=== PATIENT | female | born 1980 | race Hispanic/Latino ===

== ENCOUNTER 2025-07-29 03:55 | Emergency (ER) | payer OTHER ==
[~2025-07-29] VITALS: Ht 160 cm; Wt 154.2 kg
[2025-07-29] MEDS ORDERED: CLIN-141 PO (04:07)
[2025-07-29] MEDS ORDERED: LORA10TA7 PO (04:07)
[2025-07-29] MEDS ORDERED: FLUT16H NS (04:07)
--- NOTE | 2025-07-29 04:08 | ERN ---
General Chief Complaint: Congestion Stated Complaint: COUGH, CONGESTION Time Seen by MD: 03:59 Source: patient History of Present Illness Initial Comments PATIENT IS A 45-YEAR-OLD COMPLAINING OF A COUGH. PER PATIENT THIS HAS BEEN ONGOING FOR TWO DAYS. SHE STATES THAT SICK CONTACTS INCLUDE SON WITH THE SAME IN HIS SYMPTOMS. NO FEVER OR CHILLS. ROS Dictation CONSTITUTIONAL: NO CHILLS, NO FEVER, NO WEAKNESS, NO DIAPHORESIS, NO MALAISE. HEAD/FACE: NO SIGNS OF TRAUMA. EENT: NO EYE PAIN, NO BLURRED VISION, NO TEARING, NO DOUBLE VISION, NO EAR PAIN, NO EAR DISCHARGE, NO NOSE PAIN, NO NASAL CONGESTION, NO THROAT PAIN, NO THROAT SWELLING, NO MOUTH PAIN. RESPIRATORY: COUGH, NO ORTHOPNEA, NO SOB, NO STRIDOR, NO WHEEZING. CARDIOVASCULAR: NO CHEST PAIN, NO EDEMA, NO PALPITATIONS, NO SYNCOPE. GASTROINTESTINAL/ABDOMINAL: NO ABDOMINAL PAIN, NO CONSTIPATION, NO DIARRHEA, NO NAUSEA, NO VOMITING. GENITOURINARY: NO ABNORMAL DISCHARGE, NO DYSURIA, NO FREQUENT URINATION, NO HEMATURIA. NO COMPLAINTS OF PAIN IN THE GENITALS. MUSCULOSKELETAL: NO BACK PAIN, NO GOUT, NO JOINT PAIN, NO JOINT SWELLING, NO MUSCLE PAIN, NO MUSCLE STIFFNESS, NO NECK PAIN. INTEGUMENTARY: NO CHANGE IN COLOR, NO CHANGE IN HAIR/NAILS, NO DRYNESS, NO LESION, NO LUMPS, NO RASH. NEUROLOGICAL/PSYCH: NO ANXIETY, NOT DEPRESSED, NO EMOTIONAL PROBLEM, NO HEADACHE, NO NUMBNESS, NO PRE-EXISTING DEFICIT, NO HISTORY OF SEIZURES, NO TREMORS, NO WEAKNESS. HEMATOLOGIC/LYMPHATIC: NOT ANEMIC, NO HISTORY OF BLOOD CLOTS, NO APPARENT BLEEDING, NO BRUISING, GLANDS NOT SWOLLEN. ALL SYSTEMS NEGATIVE, EXCEPT NOTED. Physical Exam Physical Exam Dictation VITAL SIGNS: REVIEWED. GENERAL APPEARANCE: ALERT, ORIENTED X3, NO ACUTE DISTRESS, OBESE. HEAD AND FACE: NON-TRAUMATIC. EYES: PERRL, PINK CONJUNCTIVAS, EYELID NO TRAUMA, ANTERIOR CHAMBER CLEAR. EARS: PINNAS INTACT AND NO SIGNS OF TRAUMA OR ERYTHEMA. EAR CANALS CLEAR AND NO DISCHARGE. TMS ERYTHEMA. NOSE: NO DISCHARGE, NO BLEEDING. NASAL TURBINATE SWELLING BILATERAL OROPHARYNX: MOUTH NORMAL, TEETH NO CARIES, TONGUE PINK. PHARYNX ERYTHEMA. TONSILS NO EXUDATES, NO ABSCESSES NOTED. MUCOUS MEMBRANE MOIST. NECK: SUPPLE, NON-TENDER, NO THYROMEGALY, NO MASSES, NO JVD, NO BRUITS. BREAST: DEFERRED. CHEST: NO TENDERNESS, NO CREPITUS, NO PARADOXICAL MOVEMENT, NO RETRACTIONS. LUNGS: CLEAR, WELL-VENTILATED, SYMMETRIC, NO RALES, NO WHEEZING, NO RHONCHI, NO STRIDOR, GOOD BREATH SOUNDS BILATERALLY. HEART: REGULAR RATE, REGULAR RHYTHM, NO MURMUR, NO GALLOPS. VASCULAR: NO PERIPHERAL EDEMA. ABDOMEN: SOFT, POSITIVE BOWEL SOUNDS, NONDISTENDED, NO GUARDING, NONTENDER, NO REBOUND, NO MASSES NO HEPATOMEGALY, NO SPLENOMEGALY, NO GREEN'S SIGN, NO HERNIAS. RECTAL: DEFERRED. GENITAL: DEFERRED. NEUROLOGICAL: NORMAL SPEECH, GROSS MOTOR FUNCTION INTACT, GROSS SENSORY FUNCTION INTACT. MUSCULOSKELETAL: NECK NONTENDER, FULL RANGE OF MOTION, BACK NONTENDER, FULL RANGE OF MOTION. EXTREMITIES: NONTENDER, FULL RANGE OF MOTION. SKIN: COLOR PINK, DRY, NO TURGOR, NO RASH, NO LACERATIONS, NO ABRASIONS, NO CONTUSIONS. LYMPHATICS: DEFERRED. Results Laboratory and Microbiology Labs Reviewed?: Yes MDM MDM: DIFFERENTIAL DIAGNOSIS: SINUSITIS, OTITIS MEDIA, URI RATIONALE: TESTS CONSIDERED AND ORDERED SECONDARY TO SHARED DECISION MAKING INCLUDE: PREVIOUS OUTSIDE RECORDS REVIEWED: OLD ER VISITS. RISK OF COMPLICATION AND/OR MORBIDITY OR MORTALITY OF PATIENT MANAGEMENT: NONE MEDICATIONS-PER MEDICATION RECONCILIATION NEED FOR HOSPITALIZATION: PATIENT DOES NOT MEET CRITERIA FOR HOSPITALIZATION. NEED FOR EMERGENCY MAJOR/MINOR SURGERY: NO PATIENT IS A 45-YEAR-OLD FEMALE COMING IN COMPLAINING OF A COUGH. ON PHYSICAL EXAM BILATERAL TYMPANIC MEMBRANE ERYTHEMA WELL OROPHARYNGEAL ERYTHEMA WITH A POSTNASAL DRAINAGE BILATERAL NASAL TURBINATE SWELLING. THESE FINDINGS PATIENT WILL BE DISCHARGED WITH A DIAGNOSIS OF SINUSITIS. SHE IS A ALLERGIC TO A LOT OF ANTIBIOTICS PATIENT WILL BE DISCHARGED WITH THE CLINDAMYCIN PATIENT DID RECEIVE A SHOT OF DECADRON IN THE ER AND WE WILL BE DISCHARGED WITH NASAL INHALATION OF STEROIDS WELL. ED Course Orders Procedure Category Date Status Time Dexamethasone 4mg/Ml PHA 07/29/25 Verified 1ml Vial (Dexametha 04:30 DX & DISP Disposition: Discharge Departure Impression: Primary Impression: Sinusitis Condition: Stable Scripts Clindamycin HCl (Clindamycin HCl) 300 Mg Capsule 1 CAP PO TID for 10 Days, #30 CAP 0 Refills Prov: CLOVER NINO MD 07/29/25 Loratadine (Loratadine) 10 Mg Tablet 1 TAB PO DAILY for allergy symptoms for 30 Days, #30 TAB 0 Refills Prov: CLOVER NINO MD 07/29/25 Fluticasone Propionate (Flonase Nasal Chin[place]) 50 Mcg/Actuation [place] 2 SPRAY NS DAILY, #16 GM 0 Refills Prov: CLOVER NINO MD 07/29/25 Additional Instructions: FOLLOW-UP WITH PRIMARY CARE PROVIDER IN 1 TO 2 DAYS. TAKE MEDICATIONS DIRECTED HERE IN THE EMERGENCY ROOM. OKAY TO CONTINUE HOME MEDICATIONS UNLESS OTHERWISE DISCUSSED DURING YOUR VISIT IN THE EMERGENCY ROOM TODAY. RETURN TO YOUR NEAREST EMERGENCY ROOM IF SYMPTOMS WORSEN OR IF THERE IS NO IMPROVEMENT. CALL 911 IF YOU NEED IMMEDIATE ASSISTANCE. TAKE TYLENOL [id number] NEEDED AND IF NO CONTRAINDICATIONS ARE PRESENT. INCREASE ORAL HYDRATION. A WOUND CULTURE OR URINE CULTURE WAS ORDERED HERE IN THE EMERGENCY ROOM DEPARTMENT PLEASE FOLLOW-UP WITH PRIMARY CARE PROVIDER AND ADVISE THEM TO GET REPORTS FROM OUR FACILITY. IF YOU HAD ANY ROLDAN WRAP/SPLINTS THAT WERE APPLIED HERE, PLEASE DO NOT REMOVE THEM UNTIL YOU SEE YOUR PRIMARY CARE OR SPECIALTY. REFERRALS: Referrals: AALIYAH MORGAN MD (PCP) Time of Disposition: 04:07 CLOVER NINO MD Jul 29, 2025 04:07
[2025-07-29 04:53] VITALS: BP 142/78; PULSE 86; RESP 20; TEMP 97.2; O2SAT 98
== END 2025-07-29 04:53 | disposition home or self-care (01) ==
LOC: EDH 03:55
DX: J32.9 Chronic sinusitis, unspecified (principal)
CPT/HCPCS: 99283; 96372; J1100